=== PATIENT | male | born 1935 | race Caucasian/White ===

== ENCOUNTER → 2019-12-03 | Outpatient (CLI) | payer OTHER ==
[~2019-12-03] MED LIST: CYAN10007 IM; FENO160T16 PO; FURO40TA5 PO; LEVO25TA54 PO; LOSA100T58 PO; NEBI5TAB8 PO; NPH,100V11 SQ; SITA50TA PO; SPIR25TA6 PO; WARF-57 PO; WARF7.5T49 PO
== END | disposition home or self-care (01) ==
LOC: CANPRECLI → RAH 08:21
PROVIDERS: ATTEND Internal Medicine Cardiovascular Disease
DX: I71.4 Abdominal aortic aneurysm, without rupture (principal); K80.20 Calculus of gallbladder without cholecystitis without obstruction; N28.9 Disorder of kidney and ureter, unspecified; M43.26 Fusion of spine, lumbar region; M43.16 Spondylolisthesis, lumbar region; M47.816 Spondylosis without myelopathy or radiculopathy, lumbar region; I35.0 Nonrheumatic aortic (valve) stenosis
CPT/HCPCS: 74150